=== PATIENT | female | born 1980 | race Caucasian/White ===

== ENCOUNTER 2017-07-02 19:19 | Emergency (ER) | payer MEDICAID ==
[2017-07-02] MEDS: ONDANSETRON PF 4 MG/2 ML VIAL. IV (21:16)
[2017-07-02] MEDS: IV NORMAL SALINE 1000ML BAG 1,000 ML IV (21:17)
[2017-07-02] MEDS: MORPHINE SULFATE 4 MG/ML DISP.SYRIN. IV (21:21)
[2017-07-02] MEDS ORDERED: CONTRAST GIVEN MC (21:45)
[2017-07-02] MEDS: fentaNYL PF VIAL 100 MCG/2 ML VIAL IV (22:03)
[2017-07-02 22:06] LABS: ADD MAN DIFF? NO
[2017-07-02 22:09] LABS: BASO # 0.1 x10^3/uL (0.0-0.2); BASO % 1 % (0-3); EOS # 0.3 x10^3/uL (0.0-0.7); EOS % 2 % (0-3); HEMATOCRIT 35.3 % (36.0-47.0); HEMOGLOBIN 11.7 g/dL (12.0-15.5); LYMPH # 4.5 x10^3/uL (1.0-4.8); LYMPH % 28 % (24-48); MEAN CORPUSCULAR HEMOGLOBIN 28 pg (25-35); MEAN CORPUSCULAR HGB CONC 33 g/dL (31-37); MEAN CORPUSCULAR VOLUME 83 fL (79-100); MONO # 1.2 x10^3/uL (0.0-1.1); MONO % 7 % (0-9); NEUT # 10.4 x10^3uL (1.8-7.7); NEUT % 63 % (31-73); PLATELET COUNT 344 x10^3/uL (140-400); RED BLOOD COUNT 4.25 x10^6/uL (3.50-5.40); RED CELL DISTRIBUTION WIDTH 12.7 % (11.5-14.5); WHITE BLOOD COUNT 16.5 x10^3/uL (4.0-11.0)
[2017-07-02 22:12] LABS: URINE HCG POC HCG NEGATIVE (Negative)
[2017-07-02 22:24] LABS: ANION GAP 6 (6-14); BLOOD UREA NITROGEN 11 mg/dL (7-20); BUN/CREATININE RATIO 18 (6-20); CALCIUM 9.5 mg/dL (8.5-10.1); CARBON DIOXIDE 32 mmol/L (21-32); CHLORIDE 100 mmol/L (98-107); CREATININE 0.6 mg/dL (0.6-1.0); GFR 113.8; GLUCOSE 85 mg/dL (70-99); POTASSIUM 3.6 mmol/L (3.5-5.1); SODIUM 138 mmol/L (136-145)
[2017-07-02 22:32] LABS: ALBUMIN 3.1 g/dL (3.4-5.0); ALBUMIN/GLOBULIN RATIO 0.6 (1.0-1.7); ALK PHOS 120 U/L (46-116); ALT (SGPT) 37 U/L (14-59); AST (SGOT) 23 U/L (15-37); C-REACTIVE PROTEIN 89.9 mg/L (0-3.3); TOTAL BILIRUBIN 0.2 mg/dL (0.2-1.0); TOTAL PROTEIN 8.6 g/dL (6.4-8.2)
[2017-07-02] MEDS: IOHEXOL 300 MG/ML 100ML VIAL. IV (22:35)
[2017-07-02] MEDS: KETOROLAC 15 MG/ML VIAL. IV (23:29)
[2017-07-03] MEDS: CLINDAMYCIN 600MG PREMIX 50 ML IV (00:56)
[2017-07-03] MEDS: MORPHINE SULFATE 4 MG/ML DISP.SYRIN. IM (01:10)
[2017-07-03 10:06] LABS: NEGATIVE OBC STREP NEG; POSITIVE OBC STREP POS
== END 2017-07-03 02:05 | disposition short-term general hospital (02) ==
LOC: ER 07-03 02:05
DX: J36 Peritonsillar abscess (principal); Z88.0 Allergy status to penicillin; Z88.5 Allergy status to narcotic agent
CPT/HCPCS: 36415; 70491; 80053; 81025; 85025; 86140; 87070; 87880; 96361; 96365; 96372; 96375; 99285-25; J1885; J2270; J2405; J3010; J3490; J7030; Q9967

== ENCOUNTER 2017-08-05 20:59 | Emergency (ER) | payer MEDICAID ==
[2017-08-05] MEDS: HYDROcodone/APAP 5/325MG 1 TAB TABLET PO (21:58)
[2017-08-05] MEDS: ONDANSETRON ODT 4 MG TAB.RAPDIS. PO (21:58)
[2017-08-05] MEDS: NAPROXEN 500 MG TABLET PO (21:59)
== END 2017-08-05 21:54 | disposition home or self-care (01) ==
LOC: ER 20:59
DX: K04.7 Periapical abscess without sinus (principal); K08.89 Other specified disorders of teeth and supporting structures; Z88.0 Allergy status to penicillin; Z88.5 Allergy status to narcotic agent
CPT/HCPCS: 99284; Q0162